=== PATIENT | male | born 1985 | race African-American/Black ===

== ENCOUNTER 2020-03-24 13:42 | Emergency (ER) | payer OTHER ==
[~2020-03-24] VITALS: Ht 172.7 cm; Wt 93.0 kg
[2020-03-24] MEDS ORDERED: LATUDA40 MG PO (13:52)
[2020-03-24 14:16] LABS: ABSOLUTE LYMPHOCYTES 1.9 thou/uL (0.8-5.3); ABSOLUTE MONOCYTES 0.9 thou/uL (0.0-1.2); ABSOLUTE NEUTROPHILS 11.9 thou/uL (1.6-8.1); BASOPHILS 0.3 %; EOSINOPHILS 0.3 %; HEMATOCRIT 44.7 % (42.0-52.0); LYMPHOCYTES 12.6 %; MCHC 33.5 g/dL (28.0-37.0); MCV 83.6 fL (80.0-100.0); MONOCYTES 6.3 %; MPV 8.1 fl. (7.2-11.1); NUCLEATED RBCS 0 /100WBC; PLATELET COUNT* 194 thou/uL (150-400); POLYS 80.5 %; RBC 5.35 mil/uL (4.50-6.00); RDW-CV 13.3 % (10.5-14.5); WBC 14.8 thou/uL (4.0-11.0)
[2020-03-24 14:29] LABS: CALCIUM 10.1 mg/dL (8.5-10.1); CREATININE 3.1 mg/dL (0.6-1.3); POTASSIUM 3.6 mmol/L (3.5-5.1)
[2020-03-24 14:30] LABS: APTT 24.7 Seconds (25.0-31.3); PROTIME 10.7 Seconds (9.20-11.50)
[2020-03-24 14:40] LABS: ALBUMIN 4.7 g/dL (3.4-5.0); TOTAL BILIRUBIN 0.6 mg/dL (<0.1-1.0)
[2020-03-24 15:26] LABS: URINE BLOOD NEGATIVE (Negative); URINE CLARITY CLEAR; URINE COLOR DARK YELLOW; URINE GLUCOSE-RANDOM NEGATIVE (Negative); URINE KETONES NEGATIVE (Negative); URINE LEUKOCYTES-REFLEX NEGATIVE (Negative); URINE NITRITE-REFLEX NEGATIVE (Negative); URINE PROTEIN 2+ (Negative); URINE SPECIFIC GRAVITY >= 1.030 (1.005-1.030)
[2020-03-24 15:28] LABS: ICTOTEST (BILI CONFIRMATORY) Negative (Negative); URINE BILIRUBIN 1+ (Negative)
[2020-03-24 15:32] LABS: HYALINE CASTS >10 Many /LPF (None Seen); URINE WBC-REFLEX 0-5 Rare /HPF (0-5)
[2020-03-24 15:34] LABS: CRYSTALS None Seen /LPF (None Seen); MUCUS >6 Heavy strn/LPF (None Seen); SQUAMOUS 0-3 Few /LPF (0-3); URINE RBC None Seen /HPF (0-2)
[2020-03-24 15:35] LABS: BACTERIA-REFLEX 1-9 Few /HPF (None Seen)
[2020-03-24 16:00] LABS: CALCIUM 8.9 mg/dL (8.5-10.1); CREATININE 2.7 mg/dL (0.6-1.3); POTASSIUM 3.4 mmol/L (3.5-5.1)
[2020-03-24 16:10] VITALS: BP 124/77
--- NOTE | 2020-03-24 16:35 | EKG ---
[place] [address] ELECTROCARDIOGRAM REPORT Name: ELMER SWEET Room: [facility]#: [id number] Admission: 03/24/20 Attend Phys: Discharge: 03/24/20 Date of : 89 Date of Service: 03/24/20 1347 Report #: [id number] THIS REPORT FOR: //name// [facility] ED Test Date: 2020-03-24 Test Time: 13:47:25 Pat Name: ELMER SWEET Department: Room: Gender: [employer]: [facility] : 1985 Requested By: Tony Saucedo Order Number: [id number] MD: Marek Zhou Measurements Intervals Leona Rate: 89 P: 71 SD: 145 QRS: 30 QRSD: 88 T: -4 QT: 346 QTc: 421 Interpretive Statements Sinus rhythm Probable left atrial enlargement No previous ECG available for comparison Electronically Signed On 03-24-2020 16:34:46 CDT by Marek Zhou [email or web address] <ELECTRONICALLY SIGNED> By: Marek Zhou MD, [facility] 03/24/20 1634 1347 Marek Zhou MD, [facility] /EPI
== END 2020-03-24 16:11 | disposition home or self-care (01) ==
LOC: M.ERS 13:42
PROVIDERS: Family Medicine
DX: T67.5XXA Heat exhaustion, unspecified, initial encounter (principal); R25.2 Cramp and spasm; R07.9 Chest pain, unspecified; F12.10 Cannabis abuse, uncomplicated; F31.9 Bipolar disorder, unspecified; X30.XXXA Exposure to excessive natural heat, initial encounter; Y93.89 Activity, other specified; Y92.89 Other specified places as the place of occurrence of the external cause; Y99.8 Other external cause status